=== PATIENT | female | born 1965 | race Caucasian/White ===

== ENCOUNTER 2016-07-20 05:54 | Inpatient (IN) | payer BC ==
[2016-07-09 13:26] VITALS: BMI 34.0
--- NOTE | 2016-07-09 13:55 | PAT Medication Instructions ---
Service Date July 09, 2016. Current Home Medication List Acetaminophen (Tylenol), 1,000 MG PO BID Apple Cider Vinegar (Apple Cider Vinegar), 1 TAB PO QAM Ascorbic Acid (Vitamin C), 500 MG PO QAM Cholecalciferol (Vitamin D3), 2.5 TAB PO QAM Fish Oil (Madison-3), 1,000 CAP PO BID Gelatin (Gelatin), 2 TAB PO QAM Magnesium Oxide (Mag-Ox), 400 MG PO QAM Multivitamin (Multivitamin), 1 TAB PO QAM Turmeric (Curcuma Longa) (Turmeric), 1 TAB PO QAM Vitamin E (Cvs E), 400 UNIT PO QAM Medication Instructions For Your Scheduled Surgery - Hold the following medications 2 weeks prior to surgery: Turmeric (Curcuma Longa) (Turmeric), 1 TAB PO QAM Vitamin E (Cvs E), 400 UNIT PO QAM Apple Cider Vinegar (Apple Cider Vinegar), 1 TAB PO QAM Fish Oil (Madison-3), 1,000 CAP PO BID Gelatin (Gelatin), 2 TAB PO QAM - Hold the following medications the morning of surgery: Magnesium Oxide (Mag-Ox), 400 MG PO QAM Multivitamin (Multivitamin), 1 TAB PO QAM Ascorbic Acid (Vitamin C), 500 MG PO QAM Cholecalciferol (Vitamin D3), 2.5 TAB PO QAM - Take the following medications the morning of surgery with a sip of water: Acetaminophen (Tylenol), 1,000 MG PO BID - Take the following medications as scheduled the night before surgery: Acetaminophen (Tylenol), 1,000 MG PO BID : If you have any questions please call us at [phone] or [phone] ( [place]) or [phone]
[2016-07-09 14:54] LABS: BASO % 0.4 %; BASO ABS # 0.02 K/uL (0-0.2); COMPLETE YES; HEMATOCRIT 42.4 % (37-47); LYMPH % 35.5 %; LYMPH ABS # 1.75 K/uL (1.2-3.4); MEAN CORPUSCULAR HEMOGLOBIN 29.4 pg (25-34); MEAN CORPUSCULAR HGB CONC 32.3 g/dl (32-36); MEAN PLATELET VOLUME 9.5 fL (7.4-10.4); MONO % 12.6 %; NEUT % 48.5 %; PLATELET COUNT 258 K/uL (130-400); RED BLOOD COUNT 4.66 M/uL (4.2-5.4); WHITE BLOOD COUNT 4.93 K/uL (4.8-10.8)
[2016-07-09 14:56] LABS: URINE APPEARANCE CLEAR (CLEAR); URINE BILIRUBIN NEG (NEG); URINE COLOR YELLOW; URINE NITRITE NEG (NEG); URINE PH 5.5 (4.5-7.5); URINE SPECIFIC GRAVITY 1.015 (1.000-1.030); UROBILINOGEN NEG (NEG); ZZUR CULT IF INDIC CLEAN CATCH NO
[2016-07-09 15:02] LABS: PROTHROMBIN TIME (PATIENT) 10.7 SECONDS (9.0-12.0)
[2016-07-09 15:02] LABS: MANUAL MICROSCOPIC REQUIRED? NO; REVIEW REQ? NO
[2016-07-09 15:09] LABS: BUN/CREATININE RATIO 21.2 (10-20); CALCIUM 9.4 mg/dl (8.5-10.1); CREATININE 0.84 mg/dl (0.60-1.20); POTASSIUM 4.2 mmol/L (3.5-5.1)
--- NOTE | 2016-07-16 10:04 | HISTORY & PHYSICAL EXAMINATION ---
DATE OF ADMISSION: 07/20/2016 CHIEF COMPLAINT: Left knee pain. HISTORY OF PRESENT ILLNESS: Jacquie is a 51-year-old female with a multiple-year history of left knee pain. She rates her pain a 10/10. She has pain with her daily activities. She has limited standing and walking tolerance. Pain is worse with weightbearing. The patient has had injections, Tylenol, home exercise program, and bracing without relief. She has failed conservative treatment and is scheduled for a left knee replacement. PAST MEDICAL HISTORY: Negative. She denies heart disease, diabetes or DVT. PAST SURGICAL HISTORY: Right knee replacement, hysterectomy, and cervical ablation. SOCIAL HISTORY: The patient denies alcohol or tobacco use. She lives in a 2-story home. She is and retired. FAMILY HISTORY: Negative for DVT. MEDICATIONS: Tylenol 1000 mg 2 tablets daily, fish oil 1000 mg twice daily, multivitamin, vitamin C 500 mg, vitamin D3 5000 International Units, vitamin E 400 International Units, apple cider vinegar 450 mg, gelatin 1300 mg, turmeric, and magnesium 250 mg. ALLERGIES: None. REVIEW OF SYSTEMS: See HPI. Ten other systems reviewed, all negative. PHYSICAL EXAMINATION: VITAL SIGNS: Height 5 feet 8, weight 222 pounds, BMI 34. GENERAL: This is a well-developed, well-nourished female who is alert and oriented x3. Mood and affect are appropriate. HEENT: Normocephalic, atraumatic. Mucous membranes are moist and intact. NECK: Supple without lymphadenopathy. HEART: Regular rate and rhythm without murmurs, rubs or gallops. LUNGS: Clear to auscultation without wheezes or rhonchi. ABDOMEN: Soft and nontender. Bowel sounds are equal and active. EXTREMITIES: No ecchymosis, redness or warmth. She has neutral alignment. Thigh and calf are soft and nontender. Range of motion is from 0-120 degrees. She has +1 laxity. She is neurovascularly intact with +5/5 strength. X-RAY EXAMINATION: AP and lateral views show joint space narrowing and osteophyte formation. IMPRESSION: Degenerative joint disease, left knee. PLAN: The patient will be admitted for a left total knee arthroplasty. We will do cruciate retaining knee replacement. We will plan on aspirin for DVT prophylaxis. She will have [facility] for home physical therapy.
[~2016-07-20] VITALS: Ht 172.7 cm; Wt 101.1 kg
[2016-07-20] VITALS (9 sets, daily range): BP systolic 108–145; BP diastolic 70–91; PULSE 71–86; TEMP 36.3–36.6; O2SAT 94–97; Ht 172.7 cm; Wt 101.1 kg
[~2016-07-20 05:54] MED LIST: ACET-1256 PO; APPLTAB PO; ASCA500 PO; CHOL20007 PO; GELA600C PO; MAGN400T6 PO; MULT-506 PO; OMEG10007 PO; TURM500T PO; [UNRECOGNIZED DRUG - CODE] PO
[2016-07-20] MEDS ORDERED: ROPIVACAINE 5MG/ML 30 ML 150 MG, BUPIVACAINE/EPINEPHR 0.5% MPF 30 ML, KETOROLAC TROMETH... INFIL SCH ×7 (06:00)
[2016-07-20] MEDS ORDERED: GABAPENTIN 300 MG CAP PO SCH (06:00)
[2016-07-20] MEDS ORDERED: POLYMYXIN B SULFATE 100,000 UNITS in NSS 100ML IR SCH (06:00)
[2016-07-20] MEDS ORDERED: METOCLOPRAMIDE HCL 10 MG TAB PO SCH (06:00)
[2016-07-20] MEDS ORDERED: CeleBREX 200 MG CAP PO SCH (06:00)
[2016-07-20] MEDS ORDERED: LACTATED RINGER'S 1000ML IV SCH (06:00)
[2016-07-20] MEDS ORDERED: CEFAZOLIN 2000 MG/60 ML D5W 60 ML IV SCH (06:00)
[2016-07-20] MEDS ORDERED: LACTATED RINGER'S 1000ML 1,000 ML IV SCH (06:00)
[2016-07-20] MEDS ORDERED: FAMOTIDINE 20 MG TAB PO SCH (06:00)
[2016-07-20] MEDS ORDERED: DEXAMETHASONE 4 MG TAB PO SCH (06:00)
[2016-07-20] MEDS ORDERED: LACTATED RINGER'S 1000ML 500 ML IV ONE (06:00)
[2016-07-20] MEDS ORDERED: VANCOMYCIN INJ 400 MG in NSS 100ML IR SCH (06:00)
[2016-07-20] MEDS ORDERED: OXYCODONE HCL 10 MG TABCR (OXYCONTIN) PO SCH (06:00)
[2016-07-20] MEDS ORDERED: ACETAMINOPHEN 500 MG TAB PO SCH (06:00)
[2016-07-20] MEDS: TRANEXAMIC ACID INJ 1,000 MG in SODIUM CHLORIDE 0.9% 100ML 100 ML IV SCH ×2 (06:30→08:30)
[2016-07-20] MEDS ORDERED: MIDAZOLAM HCL 1 MG/ML 2ML VIAL ONE (06:44)
[2016-07-20] MEDS ORDERED: FENTANYL CITRATE INJ 50 MCG/1 ML 2 ML VIAL ONE (06:44)
[2016-07-20] MEDS ORDERED: ORTHO JOINT ANESTHETIC ONE (06:58)
[2016-07-20] MEDS ORDERED: BACITRACIN 50000 UNIT VIAL ONE (06:58)
[2016-07-20] MEDS ORDERED: POVIDONE-IODINE OP SOLN 30 ML BTL ONE (06:58)
[2016-07-20] MEDS ORDERED: BUPIVACAINE/EPINEPHRINE 0.25% 1:200,000 30 ML VIAL ONE ×2 (06:58→07:06)
--- NOTE | 2016-07-20 07:01 | History & Physical Bridge Note ---
H&P Re-Evaluation Bridge Note: I have examined the patient, reviewed the History & Physical and in the interval since the performance of the History & Physical I have noted the following changes of clinical significance: No changes noted
[2016-07-20] MEDS ORDERED: BUPIVACAINE 0.5 % 5 MG/1 ML PF 10ML VIAL ONE (07:21)
[2016-07-20] MEDS ORDERED: BUPIVACAINE 0.25% 30 ML VIAL ONE (07:21)
[2016-07-20] MEDS ORDERED: EpHEDrine SULFATE INJ 50 MG/ML AMP IV PRN (07:30)
[2016-07-20] MEDS ORDERED: ATROPINE SULFATE 0.1 MG/ML 5ML SYR IV PRN (07:30)
[2016-07-20] MEDS ORDERED: ONDANSETRON INJ 2 MG/ML 2 ML VIAL IV PRN ×2 (07:30→10:30)
[2016-07-20] MEDS ORDERED: FENTANYL CITRATE INJ 50 MCG/1 ML 2 ML VIAL IV PRN (07:30)
[2016-07-20] MEDS ORDERED: PROPOFOL IV EMULSION 10 MG/ML 20 ML VIAL IV ONE (09:48)
[2016-07-20] MEDS ORDERED: LIDOCAINE HCL 2% 2 ML VIAL (20MG/ML) ONE (09:48)
--- NOTE | 2016-07-20 10:18 | [facility] Post Operative Brief Note ---
Immediate Operative Summary Operative Date July 20, 2016. Pre-Operative Diagnosis Degenerative Joint Disease Left Knee Post-Operative Diagnosis Degenerative Joint Disease Left Knee Procedure(s) Performed Left Total Knee Arthroplasty, Bicruciate Retaining Surgeon Dr. Vishnu Jones Sorting And Folding Supervisor Surgeon(s) ASPEN [place] Estimated Blood Loss 5 ml Findings pf med dz Specimens A. Left Knee Bone and Tissue Complication(s) None Disposition Recovery Room / PACU
[2016-07-20] MEDS ORDERED: MAGNESIUM HYDROXIDE SUSP 30 ML UDC PO PRN (10:30)
[2016-07-20] MEDS ORDERED: DiphenhydrAMINE HCL 50 MG/ML VIAL IV PRN (10:30)
[2016-07-20] MEDS ORDERED: ALUMINUM/MAGNESIUM/SIMETH (MAALOX MAX) 30 ML UDC PO PRN (10:30)
[2016-07-20] MEDS ORDERED: TRAMADOL HCL 50 MG TAB PO PRN (10:30)
[2016-07-20] MEDS ORDERED: ZOLPIDEM TARTRATE 5 MG TAB PO PRN (10:30)
[2016-07-20] MEDS ORDERED: BISACODYL 10 MG SUPP PR PRN (10:30)
[2016-07-20] MEDS ORDERED: METOCLOPRAMIDE HCL INJ 5 MG/ML 2 ML VIAL IV PRN (10:30)
[2016-07-20] MEDS ORDERED: SOD PHOSPHATE/SOD BIPHOSPHATE ENEMA 132 ML BTL PR PRN (10:30)
[2016-07-20] MEDS ORDERED: MoRPHine SULFATE 2 MG/ML CARP IV PRN (10:30)
--- NOTE | 2016-07-20 11:37 | DIAGNOSTIC IMAGING REPORT ---
LEFT KNEE 2 VIEWS History: Left total knee arthroplasty. Degenerative arthritis. Postop. FINDINGS: The patient is status post a left total knee arthroplasty. The hardware is intact. No fracture or dislocation. Surgical drains are in place. IMPRESSION: Left total knee arthroplasty. No evidence for hardware complication. Electronically signed by: Dimas Sunshine M.D. 07/20/2016 11:36 AM Dictated Date/Time: 07/20/2016 11:35 AM
--- NOTE | 2016-07-20 11:47 | Anesthesiology Progress Note ---
Anesthesia Post Op Note Date & Time July 20, 2016 at 11:46 Vital Signs Pain Intensity: 0 Vital Signs Past 12 Hours Date Time Temp Pulse Resp B/P Pulse Ox O2 Delivery O2 Flow Rate FiO2 07/20/16 11:35 37.1 69 16 113/66 97 Nasal Cannula 2 07/20/16 11:25 37.1 72 16 106/64 97 Nasal Cannula 2 07/20/16 11:15 72 16 114/68 97 Nasal Cannula 2 07/20/16 11:05 72 16 109/65 97 Mask 8 07/20/16 10:55 36.2 82 16 115/68 100 Mask 8 07/20/16 07:30 65 18 140/82 97 Room Air 07/20/16 06:30 36.6 74 18 145/91 97 Room Air Notes Mental Status: alert / awake / arousable, participated in evaluation Pt Amnestic to Procedure: Yes Nausea / Vomiting: adequately controlled Pain: adequately controlled Airway Patency, RR, SpO2: stable & adequate BP & HR: stable & adequate Hydration State: stable & adequate Neuraxial Anesthesia: was administered, sensory block is resolving Anesthetic Complications: no major complications apparent
[2016-07-20] MEDS ORDERED: KETOROLAC TROMETHAMINE 30 MG/ML VIAL IV. PRN (13:00)
[2016-07-20] MEDS: ACETAMINOPHEN 500 MG TAB PO SCH ×2 (13:37→21:25)
[2016-07-20] MEDS: D5W AND 1/2NSS + 20MEQ KCL 1,000 ML IV SCH ×2 (13:38→22:42)
--- NOTE | 2016-07-20 14:21 | OPERATIVE REPORT ---
DATE OF OPERATION: 07/20/2016 PREOPERATIVE DIAGNOSIS: Degenerative arthritis, left knee. POSTOPERATIVE DIAGNOSIS: Same. PROCEDURE: Left total knee using a bicruciate retaining knee components. SURGEON: Dr. Jones. TRIAL COURT JUDGE: Janes Remy PA-C. ANESTHESIA: Spinal. TOURNIQUET TIME: 75 minutes at 275 mmHg. DRAINS: Hemovac x2. CULTURES: None. COMPLICATIONS: None. COMPONENTS USED: Ceron \T\ Nephew Journey XR Knee System: Femur size 4, tibial insert size 3 x 10 bilaterally, patella size 32 oval. NOTE: Janes Remy PA-C was present and assisted throughout due to the complicated nature of this case. He helped with preparation and set up, first assisted throughout and personally closed the capsule, subcutaneous and skin layers and applied the postoperative dressing. DESCRIPTION: Following satisfactory spinal the patient was supine. A tourniquet was placed. The lower extremity was prepared with ChloraPrep and draped sterilely. Following a surgical timeout, the tourniquet was inflated. A midline incision was made with a median parapatellar arthrotomy. The knee showed grade 3-4 changes in the patellofemoral joint and grade 2-3 changes in the medial compartment. The anterior cruciate ligament was intact. Lateral compartment was also intact. The patient matched femoral block was applied. Femoral distal rotation and resection were set and completed. The extension gap was checked and the 4-in-1 block was used to finish preparation of the femur. The patella had been freehand cut and was sized. The tibia was then prepared with the extramedullary alignment guide. Tibial medial resection depth was set at 9 mm and the tibial island was mapped out. The tibial cutting guide was attached and secured with pins. The island pins were drilled. The medial side was then cut and sized for a 3 x 10 insert which showed about 1-2 mm of laxity in extension, flexion and full extension. The lateral side was then cut in a similar fashion. Reduction confirmed good stability and the patella tracked well. Final preparation of the femur and tibia were all completed. Local anesthetic was placed in the posterior medial capsule and following irrigation, the components were cemented with Simplex G cement. A Betadine soak was performed. When the cement hardened the Betadine was irrigated. Two drains were placed. The arthrotomy was closed with a running suture of 0 V-Loc and reinforced with #1 Vicryl. The subcutaneous tissues with 2-0 Vicryl. The skin with a running subcuticular stitch of 3-0 V-Loc. Dermabond and a dry dressing were applied. The tourniquet was deflated. The patient was returned to her bed in stable condition. I attest to the content of the Intraoperative Record and any orders documented therein. Any exceptio ns are noted below.
[2016-07-20] MEDS: CEFAZOLIN IV 2,000 MG in DEXTROSE 5% 50ML 50 ML IV SCH ×2 (16:05→23:29)
[2016-07-20] MEDS ORDERED: TRANEXAMIC ACID INJ 1,000 MG in SODIUM CHLORIDE 0.9% 100ML 100 ML IV SCH (17:00)
[2016-07-20] MEDS ORDERED: SENNA 8.6 MG TAB PO SCH (21:00)
[2016-07-20] MEDS: OXYCODONE HCL IR 5 MG TAB (IMMEDIATE RELEASE) PO PRN (21:24)
[2016-07-20] MEDS: ASPIRIN 81 MG ECTAB PO SCH (21:24)
[2016-07-21 04:10] VITALS: BP 116/72; PULSE 88; TEMP 36.5; O2SAT 95
[2016-07-21] MEDS: ACETAMINOPHEN 500 MG TAB PO SCH (05:38)
[2016-07-21 06:18] LABS: HEMATOCRIT 40.6 % (37-47); MEAN CORPUSCULAR HEMOGLOBIN 29.8 pg (25-34); MEAN CORPUSCULAR HGB CONC 32.8 g/dl (32-36); MEAN PLATELET VOLUME 9.2 fL (7.4-10.4); PLATELET COUNT 247 K/uL (130-400); RED BLOOD COUNT 4.46 M/uL (4.2-5.4); WHITE BLOOD COUNT 14.79 K/uL (4.8-10.8)
[2016-07-21 06:58] LABS: BUN/CREATININE RATIO 13.1 (10-20); CALCIUM 8.9 mg/dl (8.5-10.1); CREATININE 0.85 mg/dl (0.60-1.20); POTASSIUM 3.8 mmol/L (3.5-5.1)
[2016-07-21 07:39] VITALS: BP 122/80; PULSE 82; TEMP 36.3; O2SAT 96
[2016-07-21 07:52] VITALS: O2SAT 96
--- NOTE | 2016-07-21 08:09 | Anesthesiology Progress Note ---
Anesthesia Post Op Note Date & Time July 21, 2016 at 08:10 Vital Signs Vital Signs Past 12 Hours Date Time Temp Pulse Resp B/P Pulse Ox O2 Delivery O2 Flow Rate FiO2 07/21/16 07:52 96 Room Air 07/21/16 07:51 Room Air 07/21/16 07:39 36.3 82 18 122/80 96 Room Air 07/21/16 04:10 36.5 88 16 116/72 95 Room Air 07/20/16 23:26 Room Air 07/20/16 23:25 36.6 86 16 129/79 94 Room Air Notes Mental Status: alert / awake / arousable, participated in evaluation Pt Amnestic to Procedure: Yes Nausea / Vomiting: adequately controlled Pain: adequately controlled Airway Patency, RR, SpO2: stable & adequate BP & HR: stable & adequate Hydration State: stable & adequate Neuraxial Anesthesia: sensory block resolved Anesthetic Complications: no major complications apparent
[2016-07-21] MEDS: D5W AND 1/2NSS + 20MEQ KCL 1,000 ML IV SCH (08:46)
[2016-07-21] MEDS: ASPIRIN 81 MG ECTAB PO SCH (08:47)
[2016-07-21] MEDS: OXYCODONE HCL IR 5 MG TAB (IMMEDIATE RELEASE) PO PRN (08:50)
[2016-07-21] MEDS ORDERED: MULTIVITAMIN TAB PO SCH (09:00)
[2016-07-21] MEDS ORDERED: PANTOprazole SOD 40 MG TAB PO SCH (09:00)
[2016-07-21] MEDS ORDERED: MAGNESIUM OXIDE 400 MG TAB PO SCH (09:00)
[2016-07-21] MEDS ORDERED: ASCORBIC ACID 500 MG TAB PO SCH (09:00)
[2016-07-21 09:25] VITALS: BP 120/84; PULSE 85; O2SAT 99
[2016-07-21 09:37] VITALS: BP 122/80; PULSE 82; TEMP 36.3; O2SAT 96
--- NOTE | 2016-07-21 09:55 | DISCHARGE SUMMARY ---
DISCHARGE DIAGNOSIS: Degenerative joint disease left knee. SECONDARY DIAGNOSIS: None. CONSULTS: None. COMPLICATIONS: None. PROCEDURE: The patient underwent a left cruciate self-retaining total knee replacement with Dr. Jones on 07/20/2016. BRIEF HISTORY: Please see previously dictated history and physical. HOSPITAL SUMMARY: The patient was admitted on the above day for the above procedure. Procedure went without complication. Postop day 1, the patient was feeling well without complaints. Vital signs were stable. She was afebrile. Dressing was clean, dry and intact. She was neurovascularly intact. Calves were soft and nontender. Hemovac drained 140 and 25 mL. Hemoglobin was 13.3. The patient began physical therapy per protocol. She progressed well and was discharged to home later that day in stable condition. For further review please see the chart. Lab, x-ray data and discharge instructions as per chart.
[2016-07-21] MEDS ORDERED: ASPEC81 PO (11:00)
[2016-07-21] MEDS ORDERED: CLB200 PO (11:00)
[2016-07-21] MEDS ORDERED: RXC5 PO (11:00)
[2016-07-21] MEDS ORDERED: ACET-1256 PO (11:00)
[2016-07-21] MEDS ORDERED: SNK PO (11:01)
--- NOTE | 2016-07-21 11:07 | Discharge Instructions ---
Discharge Instructions Date of Service July 21, 2016. Admission Reason for Admission: Left Knee Degenerative Arthritis Discharge Discharge Diagnosis / Problem: Left Knee Djd Discharge Goals Goal(s): Decrease discomfort, Improve function Activity Recommendations Activity Limitations: per Instructions/Follow-up section Weightbearing Status: Left weightbearing (as tolerated) . Instructions / Follow-Up Instructions / Follow-Up ACTIVITY RECOMMENDATIONS: SELF CARE INSTRUCTIONS AFTER TOTAL KNEE REPLACEMENT A. You may need to continue a physical therapy program after discharge from the hospital. There are several options available to you. Your doctor will assist you in selecting the best one for you. 1. An out-patient facility 2 to 3 times a week for therapy or home therapy. 2. Continue working on all exercises taught to you in the hospital. Your goals should be to increase bending of your knee to 90 degrees and beyond and to fully straighten your knee. B. You may progress at your own pace from walking with a walker or crutches to a cane; then to no assistive devices. C. Make walking a part of your daily routine. Be up as much as comfortable with rest periods throughout the day. Rest with leg elevation is very important. Use the ice wrap frequently for the first 3-4 weeks. D. There are no restrictions on activities. You may ride in a car, shop, participate in cleaner and preparer and all social activities. E. Wear the long elastic stockings (IVY hose) 20 hours a day for 2 weeks after surgery. They can be removed several times a day for laundering and for a bath. F. You may shower, no tub baths until cleared by your doctor. SPECIAL CARE INSTRUCTIONS: VERY IMPORTANT TO READ AND REVIEW A. There are a few signs you need to watch for after you are home. Call [facility] if you notice any of the followin. Increased severe knee pain. Some pain is expected especially when you exercise. 2. Increased swelling in your leg or knee; pain or swelling of the calf muscle in either lower leg. 3. Any fluid drainage from the incision. 4. Shortness of breath or chest pain. B. Please call [facility] at if you have any concerns or questions about your operation or recovery. The doctor or his nurse will return your call promptly. C. You must take antibiotics before dental work, bladder, bowel or other surgery. Your doctor will provide you with a permanent care to carry describing this precaution. IMPORTANT: * REMEMBER TO TAKE ASPIRIN, 81 MG, TWICE DAILY FOR 4 WEEKS UNLESS OTHERWISE DIRECTED. THIS IS YOUR BLOOD THINNER. * HIGH RISK PATIENTS MAY BE PRESCRIBED A STRONGER BLOOD THINNER. THIS WILL BE PROVIDED AT DISCHARGE. * CALL IF INCREASED PAIN, REDNESS, DRAINAGE OR FEVER GREATER THAT 101. * WEAR IVY HOSE 20 HOURS PER DAY FOR 2 WEEKS. * DERMABOND Prineo- This is a mesh tape dressing that is covered with glue. It should remain in place until the incision is properly healed, usually 10-14 days. This dressing is designed to naturally slough off. You may trim the excess mesh tape as it peels off. Incision may be briefly wet in a shower. Dry immediately by blotting with a clean, dry towel. Do not bath or swim until instructed by your doctor. Do not scratch, rub, or pick at the dressing. Do not apply any topical ointments or lotions until dressing is completely removed and/or instructed by your doctor. There may be a small piece of suture material at one end of your incision. Do not pull or trim this. If it is bothersome or catching on clothing, you may cover it with a band-aid. . FOLLOW UP VISIT: If appointment is not already scheduled: Please call [facility] to make a follow-up appointment for 2 weeks after your surgery at . Current Hospital Diet Patient's current hospital diet: Regular Diet Discharge Diet Recommended Diet: Regular Diet Procedures Procedures Performed: Left Total Knee Arthroplasty, Bicruciate Retaining Pending Studies Studies pending at discharge: no Medical Emergencies . Who to Call and When: Medical Emergencies: If at any time you feel your situation is an emergency, please call 911 immediately. . Non-Emergent Contact Non-Emergency issues call your: Surgeon Call Non-Emergent contact if: temperature is above 101.5, your pain is not controlled, your pain is worsening, wound has increased drainage, wound has increased redness . "Provider Documentation" section prepared by Janes Remy. . VTE Core Measure Inpt VTE Proph given/why not?: Other Anticoagulation, T.E.D. Stockings, SCD's [place] Drug Monitoring Program Search Results: patient reviewed within database, no issues identified
[2016-07-21] MEDS ORDERED: MORP15TA19 PO (11:18)
[2016-07-22] MEDS ORDERED: CeleBREX 200 MG CAP PO SCH (21:00)
== END 2016-07-21 12:32 | disposition home health service (06) | DRG 470 ==
LOC: ENRESERVDT → ENRESERVTM → C.ACU 05:54 → C.3E 10:21
PROVIDERS: ADMIT Orthopaedic Surgery; ATTEND Orthopaedic Surgery
PROC: 0SRD0J9 Replacement of Left Knee Joint with Synthetic Substitute, Cemented, Open Approach (ICD-10-PCS; principal; 2016-07-20 08:00)
DX: M17.12 Unilateral primary osteoarthritis, left knee (principal); E66.9 Obesity, unspecified; Z68.34 Body mass index [BMI] 34.0-34.9, adult; Z96.651 Presence of right artificial knee joint; Z87.891 Personal history of nicotine dependence; Z79.899 Other long term (current) drug therapy